=== PATIENT | female | born 1935 | race Caucasian/White ===

== ENCOUNTER 2019-12-23 07:29 | Day surgery (SDC) | payer MEDICARE ==
[~2019-12-23] VITALS: Ht 165.1 cm; Wt 38.7 kg
[2019-12-23] MEDS ORDERED: PLEASE ENTER ALLERGIES MC SCH (08:00)
[2019-12-23] MEDS ORDERED: LACTATED RINGERS 1,000 ML IV SCH (08:00)
[2019-12-23] MEDS ORDERED: CHLORHEXIDINE 15 ML UDC MM ONE (08:00)
[2019-12-23] MEDS ORDERED: LIDOCAINE-MPF 1%, 2ML INFIL STA ×2 (08:03)
[2019-12-23 08:06] VITALS: BP 162/78
[2019-12-23] MEDS ORDERED: HYDR-3653 PO (08:12)
[2019-12-23] MEDS ORDERED: HYDR200T72 PO (08:12)
[2019-12-23] MEDS ORDERED: GABA300C PO (08:12)
[2019-12-23] MEDS ORDERED: SIMV20TA19 PO (08:12)
[2019-12-23] MEDS ORDERED: OXYB5TAB10 PO (08:12)
[2019-12-23] MEDS ORDERED: FERR325T23 PO (08:12)
[2019-12-23] MEDS ORDERED: PROPOFOL 50 ML ONE (08:42)
[2019-12-23] MEDS ORDERED: PIPERACILLIN/TAZO/PMX 3.375GM 50 ML ONE (08:42)
[2019-12-23] MEDS ORDERED: OXYcodone 5 MG/5 ML ORAL.SOL UDC PO PRN (09:30)
[2019-12-23] MEDS ORDERED: FENTANYL PF 100 MCG/2ML IV PRN (09:30)
[2019-12-23] MEDS ORDERED: ACETAMINOPHEN 325 MG TABLET PO PRN (09:30)
[2019-12-23] MEDS ORDERED: ONDANSETRON 2MG/ML, 2ML IVPush PRN (09:30)
== END 2019-12-23 12:30 | disposition home or self-care (01) ==
LOC: OUT 07:29
PROVIDERS: ATTEND Internal Medicine Gastroenterology
DX: R93.5 Abnormal findings on diagnostic imaging of other abdominal regions, including retroperitoneum (principal); Z20.828 Contact with and (suspected) exposure to other viral communicable diseases; K29.00 Acute gastritis without bleeding; K22.8 Other specified diseases of esophagus; K44.9 Diaphragmatic hernia without obstruction or gangrene; R18.8 Other ascites; R63.4 Abnormal weight loss; Z79.899 Other long term (current) drug therapy
CPT/HCPCS: 43239; 43242; 87635; 88112; 88172; 88173; 88305; 88342; 93005; J2543; J2704